=== PATIENT | female | born 1960 | race Caucasian/White ===

== ENCOUNTER → 2017-02-06 | Outpatient (CLI) | payer BC ==
[2017-02-06 16:10] LABS: FREE T4 (FREE THYROXINE) 1.68 ng/dL (0.93-1.71)
== END ==
LOC: MOB LAB 14:10
PROVIDERS: ATTEND Student in an Organized Health Care Education/Training Program
DX: E03.9 Hypothyroidism, unspecified (principal)
CPT/HCPCS: 36415; 84439; 84443

== ENCOUNTER → 2017-05-01 | Outpatient (CLI) | payer BC ==
[2017-05-01 12:29] LABS: LIPASE 171 IU/L (23-300)
[2017-05-01 12:34] LABS: CALCIUM 10.3 mg/dL (8.7-10.7)
== END ==
LOC: MOB LAB 11:40
PROVIDERS: ATTEND Family Medicine
DX: R07.89 Other chest pain (principal); R10.11 Right upper quadrant pain; K21.9 Gastro-esophageal reflux disease without esophagitis
CPT/HCPCS: 36415; 80053; 82150; 83690; 85379

== ENCOUNTER → 2017-05-07 | Outpatient (CLI) | payer BC ==
--- NOTE | 2017-05-07 17:17 | DI ---
HISTORY: Non-radiating substernal chest pain for a week. History of thyroid cancer. COMPARISON: None available. TECHNIQUE: Multiple helically acquired CT images are obtained through the chest following a CT chest angiogram protocol. FINDINGS: Examination demonstrates a normal-appearing thyroid. The lungs are clear. The aorta is unremarkable. There is mild cardiomegaly. The pulmonary arteries are normal without filling defect or truncation to suggest pulmonary embolism. The upper abdomen is unremarkable. IMPRESSION: 1. No evidence of pulmonary embolism. 2. Mild cardiomegaly.
== END ==
LOC: CT 16:17
PROVIDERS: ATTEND Surgery
DX: R07.89 Other chest pain (principal); I51.7 Cardiomegaly
CPT/HCPCS: 71275

== ENCOUNTER → 2017-05-07 | Outpatient (CLI) | payer BC ==
--- NOTE | 2017-05-07 13:10 | EKG ---
[address] [address] Measurements Intervals [place] Rate: 69 P: 48 NM: 180 QRS: 10 QRSD: 83 T: 47 QT: 389 QTc: 407 Interpretive Statements SINUS RHYTHM Compared to ECG 10/15/2016 13:27:38 Myocardial infarct finding no longer present (slight change in V4 lead placement or abdominal pressure could explain this) Electronically Signed On 05-08-17 07:49:00 MDT by Ventura Barrera MD [email or web address]
== END ==
LOC: MOB EKG 13:03
PROVIDERS: ATTEND Surgery
DX: R07.9 Chest pain, unspecified (principal)
CPT/HCPCS: 93005; 93010

== ENCOUNTER 2017-05-11 10:38 | Day surgery (SDC) | payer BC ==
[~2017-05-11 10:38] MED LIST: LIDOCAINE W/ SODIUM BICARB 0.5 ML SYR ONE; Lactated Ringers 1,000 ML PRIMARY IV ONE
[2017-05-11] MEDS ORDERED: LIDOCAINE 2% VISCOUS(20 MG/1 ML) - 15 ML UD CUP PO ONE (11:13)
[2017-05-11 11:16] VITALS: RESP 18
--- NOTE | 2017-05-11 13:05 | GEN.OPNOTE ---
EGD Operative Note Surgery Date: 05/11/17 Preoperative Diagnosis: Chest pain Postoperative Diagnosis: Small hiatal hernia. Gastric polyps Procedure: Esophagogastroduodenoscopy with biopsy Surgeon: Shreyas Rodriguez MD Anesthesia Provider: Colin Swift CRNA Anesthesia Type: MAC Indications: Patient is been having chest pain cardiac reasons have been rule out the do an EGD look for esophagitis Findings: Esophagus: Olymp[employer] video EGD scope inserted in posterior pharynx. Esophagus appeared to be normal. GE Junction : 40 cm from incisors Fundus : Scope retroflexed on itself revealing a normal fundus except for small hiatal hernia Body : Body the stomach acid gastric polyps which I believe to be inflammatory. She's taken Prepyloric : Prepyloric areas within normal limits Small Intestine : Small intestines is within normal limits A lubricated flexible upper endoscope was inserted and passed through the esophagus and stomach into the duodenum.
[2017-05-11 14:00] VITALS: TEMP 97
== END 2017-05-11 13:34 | disposition home or self-care (01) ==
LOC: SDSC 10:38
PROVIDERS: ATTEND Surgery
DX: R07.9 Chest pain, unspecified (principal); K44.9 Diaphragmatic hernia without obstruction or gangrene; K31.7 Polyp of stomach and duodenum
CPT/HCPCS: 43239; J2704; J7120